=== PATIENT | female | born 1955 | race Caucasian/White ===

== ENCOUNTER 2018-10-17 10:20 | Observation (INO) ==
[2018-10-17] MEDS ORDERED: MORPHINE 4 MG/1 ML VIAL IV PRN (12:47)
[2018-10-17] MEDS ORDERED: ACETAMINOPHEN 325 MG TABLET PO PRN (12:47)
[2018-10-17] MEDS ORDERED: PROMETHAZINE 25 MG/1 ML VIAL IM PRN (12:47)
[2018-10-17] MEDS ORDERED: ONDANSETRON 4 MG/2 ML VIAL IV PRN (12:47)
[2018-10-17] MEDS ORDERED: clonazePAM 0.5 MG TABLET PO PRN (12:54)
[2018-10-17 13:29] LABS: Basophils % 0.3 % (0.0-0.8); Eosinophils # 0.2 10*3/uL (0.0-0.87); Eosinophils % 1.7 % (0.00-10.9); Hematocrit 38.5 VOL% (35.7-47.0); Hemoglobin 12.8 GM/DL (12.0-16.0); Immature Granulocytes % 0.4 %; Immature Granulocytes Absolute 0.05 #; Lymphocytes # 2.9 10*3/uL (1.4-4.0); Lymphocytes % 22.3 % (21.3-54.2); Mean Corpuscular HGB Conc 33.2 GM/DL (32-36); Mean Corpuscular Volume 90.6 FL (87-102); Mean Platelet Volume 10.9 FL (9.6-12.0); Monocytes % 5.9 % (1.7-12.7); Neutrophils % 69.4 % (38.7-73.9); Platelet Count 319 T/CUMM (130-400); Red Blood Count 4.25 MC/CUMM (3.8-5.5); Red Cell Distribution Width 13.3 % (9.3-17.3); White Blood Count 13.1 T/CUMM (4-12)
[2018-10-17] MEDS: LISINOPRIL/HCTZ 10-12.5 MG TABLET PO SCH (13:37)
[2018-10-17] MEDS: BENZTROPINE 1 MG TABLET PO SCH ×2 (13:37→21:08)
[2018-10-17] MEDS: SERTRALINE 50 MG TABLET PO SCH (13:38)
[2018-10-17] MEDS: PINDOLOL 5 MG TABLET PO SCH (13:38)
[2018-10-17 13:53] LABS: Troponin I < 0.015 NG/ML (0.00-0.045)
[2018-10-17 14:00] LABS: Albumin 3.5 G/DL (3.4-5.0); Bilirubin,Total 0.6 MG/DL (0.2-1.0); Calcium 9.1 MG/DL (8.5-10.1); Osmolality,Calculated 262.7 MOS/KG (273-304); Risk Ratio 3.28; Thyroid Stimulating Hormone 2.71 uIU/ml (0.358-3.74); Total Protein 7.8 G/DL (6.4-8.3); VLDL CHOLESTEROL 21.2 MG/DL
[2018-10-17] MEDS: METAXALONE 800 MG TABLET PO SCH ×2 (15:10→21:08)
[2018-10-17] MEDS: KETOROLAC 15 MG/1 ML VIAL IV SCH ×2 (15:11→21:08)
[2018-10-17] MEDS ORDERED: traZODone 50 MG TABLET PO SCH (21:00)
[2018-10-17] MEDS ORDERED: LURASIDONE 40 MG TABLET PO SCH (21:00)
[2018-10-17] MEDS ORDERED: ENOXAPARIN 40 MG/0.4 ML SYRINGE SUBCUT SCH (21:00)
[2018-10-17 23:11] LABS: Apearance,Urine CLEAR (Clear); Bilirubin,Urine Negative (Negative); Blood, Urine Negative (Negative); Glucose,Urine (UA) Negative (Negative); Ketones,Urine Negative (Negative); Mucus,Urine Occasional /LPF (Occasional); Nitrite,Urine Negative (Negative); Protein,Urine Negative; RBC,Urine 1 /HPF (0-4); Renal Epithelial Cells,Urine Occasional /HPF (<1); Squamous Epithelial Cell,Urine Occasional /HPF (0-10); Urine Color Yellow (Yellow); Urine Specific Gravity 1.014 (1.001-1.035); Urine Urobilinogen < 2.0 EU/DL (0.2-1.0); WBC,Urine 16 /HPF (0-6)
[2018-10-18] MEDS: KETOROLAC 15 MG/1 ML VIAL IV SCH ×2 (03:50→08:36)
[2018-10-18] MEDS ORDERED: MAGNESIUM SULF RIDER 4 GM in PREMIX 1 EACH IV PRN (07:25)
[2018-10-18] MEDS ORDERED: MAGNESIUM SULF RIDER 2 GM in PREMIX 1 EACH IV PRN (07:25)
[2018-10-18 07:42] VITALS: BP 118/69
[2018-10-18] MEDS: METAXALONE 800 MG TABLET PO SCH (08:33)
[2018-10-18] MEDS: SERTRALINE 50 MG TABLET PO SCH (08:33)
[2018-10-18] MEDS: BENZTROPINE 1 MG TABLET PO SCH (08:37)
[2018-10-18] MEDS: LISINOPRIL/HCTZ 10-12.5 MG TABLET PO SCH (08:38)
[2018-10-18] MEDS: PINDOLOL 5 MG TABLET PO SCH (08:41)
[2018-10-18] MEDS ORDERED: PANTOPRAZOLE 40 MG TABLET PO SCH (09:00)
== END 2018-10-18 12:18 | disposition home or self-care (01) ==
LOC: N.TELEN → SUATTDRO 11:34
PROVIDERS: ADMIT Internal Medicine; ATTEND Internal Medicine

== ENCOUNTER 2020-04-06 09:56 | Inpatient (IN) ==
[2020-04-06 10:33] LABS: Basophils % 0.1 % (0.0-0.8); Eosinophils # 0.1 10*3/uL (0.0-0.87); Eosinophils % 0.4 % (0.00-10.9); Hematocrit 34.1 VOL% (35.7-47.0); Immature Granulocytes % 0.5 %; Lymphocytes # 1.4 10*3/uL (1.4-4.0); Lymphocytes % 6.6 % (21.3-54.2); Mean Corpuscular HGB Conc 35.2 GM/DL (32-36); Mean Corpuscular Volume 83.2 FL (87-102); Mean Platelet Volume 10.9 FL (9.6-12.0); Monocytes % 7.2 % (1.7-12.7); Neutrophils % 85.2 % (38.7-73.9); Platelet Count 394 T/CUMM (130-400); Red Cell Distribution Width 12.6 % (9.3-17.3); White Blood Count 20.6 T/CUMM (4-12)
[2020-04-06 10:44] LABS: Albumin 3.6 G/DL (3.4-5.0); Bilirubin,Total 0.8 MG/DL (0.2-1.0); Calcium 9.5 MG/DL (8.5-10.1); Osmolality,Calculated 242.5 MOS/KG (273-304); Potassium 3.3 MMOL/L (3.5-5.1)
[2020-04-06 10:51] LABS: Bacteria,Urine Occasional /HPF (Few); Bilirubin,Urine Negative (Negative); Blood, Urine Negative (Negative); Glucose,Urine (UA) 50 mg/dL (Negative); Ketones,Urine 5 mg/dL (Negative); Nitrite,Urine Negative (Negative); Protein,Urine Negative; RBC,Urine 1 /HPF (0-4); Urine Appearance CLEAR (Clear); Urine Color Straw (Yellow); Urine Specific Gravity 1.006 (1.001-1.035); Urine Urobilinogen < 2.0 EU/DL (0.2-1.0); WBC,Urine 1 /HPF (0-6)
[2020-04-06 10:54] LABS: Band Neutrophils 5 % (0-10); Lymphocytes 7 % (20-55); Platelet Estimate Normal; Segmented Neutrophils 79 % (50-85); Total Cells Counted 100
[2020-04-06] MEDS ORDERED: SODIUM CHLORIDE 0.9% 500 ML IV STA (11:12)
[2020-04-06] MEDS ORDERED: GLUCAGON 1 MG VIAL IM PRN ×2 (13:12→13:19)
[2020-04-06] MEDS ORDERED: DEXTROSE 50% 25 GM/50 ML VIAL IV PRN ×2 (13:12→13:19)
[2020-04-06] MEDS ORDERED: hydrALAZINE 20 MG/1 ML VIAL IV PRN (13:12)
[2020-04-06] MEDS ORDERED: ALBUTEROL 2.5 MG/3 ML NEB RESP TX PRN (13:12)
[2020-04-06] MEDS ORDERED: POTASSIUM CHLORIDE 20 MEQ TABLET PO ONE ×2 (13:17→16:05)
[2020-04-06] MEDS: SODIUM CHLORIDE 0.9% 1,000 ML IV SCH ×2 (14:51→20:43)
[2020-04-06 14:58] LABS: Basophils # 0.1 10*3/uL (0.0-0.2); Basophils % 0.2 % (0.0-0.8); Eosinophils # 0.1 10*3/uL (0.0-0.87); Eosinophils % 0.3 % (0.00-10.9); Hematocrit 34.6 VOL% (35.7-47.0); Hemoglobin 12.1 GM/DL (12.0-16.0); Immature Granulocytes Absolute 0.23 #; Lymphocytes # 1.8 10*3/uL (1.4-4.0); Lymphocytes % 7.3 % (21.3-54.2); Mean Corpuscular Volume 83.8 FL (87-102); Mean Platelet Volume 10.4 FL (9.6-12.0); Monocytes % 6.3 % (1.7-12.7); Neutrophils % 84.9 % (38.7-73.9); Platelet Count 370 T/CUMM (130-400); Red Blood Count 4.13 MC/CUMM (3.8-5.5); Red Cell Distribution Width 12.8 % (9.3-17.3)
[2020-04-06 15:12] LABS: Calcium 9.3 MG/DL (8.5-10.1); Osmolality,Calculated 248.8 MOS/KG (273-304); Potassium 2.8 MMOL/L (3.5-5.1)
[2020-04-06 15:35] LABS: Hypochromasia 1+; Microcytosis 1+; Platelet Estimate Normal
[2020-04-06] MEDS: QUEtiapine 25 MG TABLET PO SCH ×2 (16:24→20:42)
[2020-04-06] MEDS: ENOXAPARIN 30 MG/0.3 ML SYRINGE SUBCUT SCH (16:25)
[2020-04-06] MEDS: INSULIN LISPRO 100 UNIT/ML SUBCUT SCH ×2 (16:25→20:39)
[2020-04-06 17:44] LABS: Barbiturates Screen,Urine Negative (Negative); Benzodiazepines Screen,Urine Negative (Negative); Cannabinoid Screen,Urine Negative (Negative); Opiate Screen,Urine Negative (Negative); Phencyclidine Screen,Urine Negative (Negative)
[2020-04-06 21:30] LABS: Calcium 8.9 MG/DL (8.5-10.1); Osmolality,Calculated 259.8 MOS/KG (273-304); Potassium 2.9 MMOL/L (3.5-5.1)
[2020-04-07 01:08] LABS: Calcium 8.8 MG/DL (8.5-10.1); Osmolality,Calculated 256.9 MOS/KG (273-304)
[2020-04-07 04:51] LABS: Basophils # 0.1 10*3/uL (0.0-0.2); Basophils % 0.3 % (0.0-0.8); Eosinophils # 0.5 10*3/uL (0.0-0.87); Eosinophils % 3.2 % (0.00-10.9); Hematocrit 34.1 VOL% (35.7-47.0); Hemoglobin 11.5 GM/DL (12.0-16.0); Immature Granulocytes % 0.7 %; Immature Granulocytes Absolute 0.11 #; Lymphocytes # 2.7 10*3/uL (1.4-4.0); Lymphocytes % 16.6 % (21.3-54.2); Mean Corpuscular HGB Conc 33.7 GM/DL (32-36); Mean Corpuscular Volume 87.2 FL (87-102); Mean Platelet Volume 11.1 FL (9.6-12.0); Monocytes % 8.6 % (1.7-12.7); Neutrophils % 70.6 % (38.7-73.9); Platelet Count 310 T/CUMM (130-400); Red Blood Count 3.91 MC/CUMM (3.8-5.5); Red Cell Distribution Width 13.2 % (9.3-17.3)
[2020-04-07 05:17] LABS: Calcium 8.8 MG/DL (8.5-10.1); Osmolality,Calculated 261.7 MOS/KG (273-304); Potassium 3.3 MMOL/L (3.5-5.1)
[2020-04-07] MEDS: PANTOPRAZOLE 40 MG TABLET PO SCH (08:18)
[2020-04-07] MEDS: QUEtiapine 25 MG TABLET PO SCH ×2 (08:18→20:12)
[2020-04-07] MEDS: INSULIN LISPRO 100 UNIT/ML SUBCUT SCH ×4 (08:18→20:12)
[2020-04-07] MEDS ORDERED: POTASSIUM CHLORIDE 20 MEQ TABLET PO ONE (08:28)
[2020-04-07] MEDS ORDERED: MAGNESIUM SULF RIDER 2 GM in PREMIX 1 EACH IV PRN (08:29)
[2020-04-07] MEDS ORDERED: MAGNESIUM SULF RIDER 4 GM in PREMIX 1 EACH IV PRN (08:29)
[2020-04-07] MEDS: SODIUM CHLORIDE 0.9% 1,000 ML IV SCH (11:00)
[2020-04-07] MEDS: lisinopriL 10 MG TABLET PO SCH (11:47)
[2020-04-07] MEDS: ENOXAPARIN 30 MG/0.3 ML SYRINGE SUBCUT SCH (13:14)
[2020-04-07 14:25] LABS: Calcium 9.1 MG/DL (8.5-10.1); Osmolality,Calculated 263.5 MOS/KG (273-304); Potassium 3.3 MMOL/L (3.5-5.1)
[2020-04-08 06:35] LABS: Basophils # 0.1 10*3/uL (0.0-0.2); Basophils % 0.6 % (0.0-0.8); Eosinophils # 0.9 10*3/uL (0.0-0.87); Eosinophils % 6.8 % (0.00-10.9); Hematocrit 34.2 VOL% (35.7-47.0); Hemoglobin 11.5 GM/DL (12.0-16.0); Immature Granulocytes % 0.9 %; Immature Granulocytes Absolute 0.11 #; Lymphocytes # 2.8 10*3/uL (1.4-4.0); Lymphocytes % 22.3 % (21.3-54.2); Mean Corpuscular HGB Conc 33.6 GM/DL (32-36); Mean Corpuscular Volume 87.7 FL (87-102); Monocytes % 9.4 % (1.7-12.7); Platelet Count 353 T/CUMM (130-400); Red Cell Distribution Width 13.5 % (9.3-17.3); White Blood Count 12.5 T/CUMM (4-12)
[2020-04-08 06:58] LABS: Calcium 9.1 MG/DL (8.5-10.1); Osmolality,Calculated 265.4 MOS/KG (273-304)
[2020-04-08] MEDS: INSULIN LISPRO 100 UNIT/ML SUBCUT SCH ×3 (08:54→15:40)
[2020-04-08] MEDS: SODIUM CHLORIDE 0.9% 1,000 ML IV SCH (08:54)
[2020-04-08] MEDS: QUEtiapine 25 MG TABLET PO SCH ×2 (08:55→21:41)
[2020-04-08] MEDS: lisinopriL 10 MG TABLET PO SCH (08:55)
[2020-04-08] MEDS: MAGNESIUM OXIDE 400 MG TABLET PO SCH (08:55)
[2020-04-08] MEDS: POTASSIUM CHLORIDE 20 MEQ TABLET PO SCH ×2 (08:55→12:13)
[2020-04-08] MEDS: PANTOPRAZOLE 40 MG TABLET PO SCH (08:55)
[2020-04-08] MEDS: CHOLECALCIFEROL 1,000 UNIT TABLET PO SCH (08:55)
[2020-04-08] MEDS ORDERED: ZIPRASIDONE 20 MG/1 ML VIAL IM ONE (11:35)
[2020-04-08] MEDS: ENOXAPARIN 30 MG/0.3 ML SYRINGE SUBCUT SCH (13:34)
[2020-04-09] MEDS: INSULIN LISPRO 100 UNIT/ML SUBCUT SCH ×5 (01:07→20:47)
[2020-04-09 05:50] LABS: Basophils # 0.1 10*3/uL (0.0-0.2); Basophils % 0.7 % (0.0-0.8); Eosinophils # 0.9 10*3/uL (0.0-0.87); Eosinophils % 8.3 % (0.00-10.9); Hematocrit 34.5 VOL% (35.7-47.0); Hemoglobin 11.5 GM/DL (12.0-16.0); Immature Granulocytes % 0.9 %; Lymphocytes # 3.2 10*3/uL (1.4-4.0); Lymphocytes % 29.3 % (21.3-54.2); Mean Corpuscular HGB Conc 33.3 GM/DL (32-36); Mean Corpuscular Volume 89.1 FL (87-102); Mean Platelet Volume 10.2 FL (9.6-12.0); Monocytes % 9.6 % (1.7-12.7); Neutrophils % 51.2 % (38.7-73.9); Platelet Count 316 T/CUMM (130-400); Red Blood Count 3.87 MC/CUMM (3.8-5.5); Red Cell Distribution Width 13.6 % (9.3-17.3)
[2020-04-09 06:11] LABS: Albumin 3.1 G/DL (3.4-5.0); Bilirubin,Total 0.6 MG/DL (0.2-1.0); Calcium 8.7 MG/DL (8.5-10.1); Osmolality,Calculated 272.8 MOS/KG (273-304); Potassium 3.6 MMOL/L (3.5-5.1)
[2020-04-09] MEDS: QUEtiapine 25 MG TABLET PO SCH ×2 (09:46→20:47)
[2020-04-09] MEDS: PANTOPRAZOLE 40 MG TABLET PO SCH (09:46)
[2020-04-09] MEDS: MAGNESIUM OXIDE 400 MG TABLET PO SCH (09:46)
[2020-04-09] MEDS: lisinopriL 10 MG TABLET PO SCH (09:46)
[2020-04-09] MEDS: CHOLECALCIFEROL 1,000 UNIT TABLET PO SCH (10:31)
[2020-04-09] MEDS: ENOXAPARIN 30 MG/0.3 ML SYRINGE SUBCUT SCH (13:58)
[2020-04-09] MEDS: SODIUM CHLORIDE 0.9% 1,000 ML IV SCH (15:12)
[2020-04-10] MEDS: INSULIN LISPRO 100 UNIT/ML SUBCUT SCH ×4 (09:39→23:02)
[2020-04-10] MEDS: QUEtiapine 25 MG TABLET PO SCH ×2 (09:39→23:02)
[2020-04-10] MEDS: MAGNESIUM OXIDE 400 MG TABLET PO SCH (09:40)
[2020-04-10] MEDS: lisinopriL 10 MG TABLET PO SCH (09:40)
[2020-04-10] MEDS: BENZTROPINE 1 MG TABLET PO SCH ×2 (09:40→23:01)
[2020-04-10] MEDS: CHOLECALCIFEROL 1,000 UNIT TABLET PO SCH (09:40)
[2020-04-10] MEDS: PANTOPRAZOLE 40 MG TABLET PO SCH (09:40)
[2020-04-10 11:08] LABS: Osmolality, Serum 252 mOsm/kg (275 - 295)
[2020-04-10 11:31] LABS: Osmolality, Urine 219 mOsm/kg (150 - 1150)
[2020-04-10] MEDS: SODIUM CHLORIDE 0.9% 1,000 ML IV SCH (11:39)
[2020-04-10] MEDS: ENOXAPARIN 30 MG/0.3 ML SYRINGE SUBCUT SCH (14:49)
[2020-04-10] MEDS ORDERED: ZIPRASIDONE 20 MG/1 ML VIAL IM PRN (17:14)
[2020-04-10] MEDS: DESITIN 4OZ/NYSTATIN 15 GRAM MIXTURE PASTE TOP SCH (23:22)
[2020-04-11 05:59] LABS: Osmolality,Calculated 267.2 MOS/KG (273-304); Potassium 3.4 MMOL/L (3.5-5.1)
[2020-04-11] MEDS: INSULIN LISPRO 100 UNIT/ML SUBCUT SCH ×2 (08:51→13:11)
[2020-04-11] MEDS: MAGNESIUM OXIDE 400 MG TABLET PO SCH (08:52)
[2020-04-11] MEDS: lisinopriL 10 MG TABLET PO SCH (08:52)
[2020-04-11] MEDS: CHOLECALCIFEROL 1,000 UNIT TABLET PO SCH (08:52)
[2020-04-11] MEDS: PANTOPRAZOLE 40 MG TABLET PO SCH (08:52)
[2020-04-11] MEDS: BENZTROPINE 1 MG TABLET PO SCH (08:53)
[2020-04-11] MEDS: QUEtiapine 25 MG TABLET PO SCH (08:53)
[2020-04-11] MEDS: DESITIN 4OZ/NYSTATIN 15 GRAM MIXTURE PASTE TOP SCH (08:53)
[2020-04-11 11:57] VITALS: BP 140/79
[2020-04-11] MEDS: ENOXAPARIN 30 MG/0.3 ML SYRINGE SUBCUT SCH (16:43)
== END 2020-04-11 16:27 | DRG 426 ==
LOC: N.ED 09:56 → N.EDINP 13:12 → SUATTDRO 13:12 → N.ICU 14:30 → N.5E 04-07 13:01
PROVIDERS: ADMIT Internal Medicine; ATTEND Internal Medicine